=== PATIENT | female | born 1995 | race Two or more races ===

== ENCOUNTER 2023-08-23 10:30 | Inpatient (IN) | payer OTHER ==
[2023-08-23] MEDS ORDERED: BETAMET ACET/BETAMET NA PH 30 MG/5 ML VIAL IM ONE (12:18)
[2023-08-23 13:23] LABS: BASO % 0.6 % (0-2.0); EOS % 2.1 % (0-4.5); HEMATOCRIT 40.5 % (32.4-45.2); HEMOGLOBIN 13.6 GM/dL (10.7-15.3); LYMPH % 25.3 % (8-40); MCH 30.1 pg (25.7-33.7); MCHC 33.6 g/dl (32.0-36.0); MEAN CELL VOLUME 89.3 fl (80-96); PLATELET COUNT 382 10^3/uL (134-434); RBC 4.54 M/mm3 (3.60-5.2); RDW 14.2 % (11.6-15.6); WHITE BLOOD COUNT 8.7 K/mm3 (4.0-10.0)
[2023-08-23 14:12] LABS: POTASSIUM 4.5 mmol/L (3.5-5.1)
[2023-08-23 14:15] LABS: ALBUMIN 2.4 g/dl (3.4-5.0); BLOOD UREA NITROGEN 7.7 mg/dL (7-18)
[2023-08-23 14:18] LABS: CREATININE 0.7 mg/dL (0.55-1.3)
[2023-08-23 14:20] LABS: BILIRUBIN,TOTAL 0.2 mg/dL (0.2-1); TOT PROT 6.1 g/dl (6.4-8.2)
[2023-08-23 15:52] VITALS: BMI 43.0
[2023-08-23 21:35] VITALS: BP 139/88; PULSE 77; RESP 20; TEMP 98.6
== END 2023-08-23 20:50 | disposition short-term general hospital (02) | DRG 566 ==
LOC: JDEL 10:30 → JLDR 14:55
PROVIDERS: ADMIT Obstetrics & Gynecology; ATTEND Obstetrics & Gynecology
DX: O36.5920 Maternal care for other known or suspected poor fetal growth, second trimester, not applicable or unspecified (principal); O99.212 Obesity complicating pregnancy, second trimester; Z3A.26 26 weeks gestation of pregnancy
CPT/HCPCS: 36415; 59025; 80053; 82570; 84156; 85025; 86850; 86900; 86901; 87635; 96372